=== PATIENT | male | born 1960 | race Asian ===

== ENCOUNTER 2025-09-10 13:28 | Outpatient (CLI) | payer BC | END 2025-09-10 13:29 | disposition home or self-care (01) | LOC: CSHMRI 13:28 | PROVIDERS: ATTEND Family Medicine | DX: M54.50 Low back pain, unspecified (principal); M47.816 Spondylosis without myelopathy or radiculopathy, lumbar region; M48.061 Spinal stenosis, lumbar region without neurogenic claudication | CPT/HCPCS: 72148 ==